=== PATIENT | female | born 1940 | race African-American/Black ===

== ENCOUNTER 2016-10-21 20:31 | Inpatient (IN) | payer MEDICARE, MEDICAID ==
[~2016-10-21] VITALS: Ht 157.5 cm; Wt 54.4 kg
[~2016-10-21 20:31] MED LIST: BENAZEPRIL; TRAMADOL
[2016-10-21 21:32] LABS: BASOPHILS % 0.8 % (0.0-2.0); EOSINOPHILS % 1.2 % (0.0-5.0); HEMATOCRIT. 29.8 % (36.0-48.0); HEMOGLOBIN. 9.5 g/dL (12.0-16.0); LYMPHOCYTES % 12.1 % (20.0-50.0); MEAN CORPUSCULAR HEMOGLOBIN 27.4 pg (28.0-32.0); MEAN CORPUSCULAR VOLUME 86.2 fL (81.0-99.0); MEAN PLATELET VOLUME 8.2 fl (7.4-10.4); MONOCYTES % 5.2 % (2.0-8.0); NEUTROPHILS % 80.7 % (40.0-76.0); PLATELET 264 x1000/uL (130-400); RED BLOOD CELL COUNT 3.46 mill/uL (4.2-5.4)
[2016-10-21 21:36] LABS: PROTHROMBIN TIME 10.4 sec (9.4-11.6)
[2016-10-21 21:52] LABS: CHLORIDE 108 mEq/L (98-107)
[2016-10-21 21:55] LABS: CARBON DIOXIDE 21 mEq/L (21-32)
[2016-10-21 22:03] LABS: TROPONIN I 0.03 ng/mL (0.00-0.04)
[2016-10-21] MEDS ORDERED: ATROPINE SULFATE 1MG/ML VIAL IV ONE (22:45)
[2016-10-21] MEDS ORDERED: CALCIUM GLUCONATE 1,000 MG in DEXTROSE 5% WATER 50 ML IV ONE (22:45)
[2016-10-21] MEDS ORDERED: MORPHINE SULFATE 2 MG/ML CPJ (NOT FOR IM USE) IV PRN (23:00)
[2016-10-21] MEDS ORDERED: LORAZEPAM 2MG/ML CPJ IV PRN (23:00)
[2016-10-21] MEDS ORDERED: ONDANSETRON HCL 4MG/2ML VIAL IV PRN (23:00)
[2016-10-21] MEDS ORDERED: IBUPROFEN 600MG TABLET PO PRN (23:15)
[2016-10-21] MEDS ORDERED: ACETAMINOPHEN 325MG TABLET PO PRN (23:15)
[2016-10-21] MEDS ORDERED: ATROPINE SULFATE 1MG/ML VIAL IV NR (23:45)
[2016-10-21] MEDS ORDERED: ATROPINE SULFATE 1MG/10ML SYR IV ONE (23:45)
[2016-10-22] VITALS (10 sets, daily range): BP systolic 120–208; BP diastolic 31–111
[2016-10-22] MEDS: SODIUM CHLORIDE 0.9% 1,000 ML IV SCH ×2 (05:43→22:33)
[2016-10-22 08:07] LABS: TROPONIN I 0.06 ng/mL (0.00-0.04)
[2016-10-22] MEDS ORDERED: ENOXAPARIN 30MG/0.3ML SYR SUBCUT SCH (09:00)
[2016-10-22] MEDS: AMLODIPINE 5MG TABLET PO SCH ×2 (11:36→21:20)
[2016-10-22 12:06] LABS: CARBON DIOXIDE 21 mEq/L (21-32); CHLORIDE 108 mEq/L (98-107)
[2016-10-22] MEDS ORDERED: ACETAMINOPHEN 325MG TABLET PO PRN (13:00)
[2016-10-22] MEDS ORDERED: ONDANSETRON HCL 4MG/2ML VIAL IV PRN (13:00)
[2016-10-22] MEDS ORDERED: SODIUM POLYSTYRENE SULFONATE 15 G/60 ML BOT PO SCH (13:00)
[2016-10-22] MEDS ORDERED: MAGNESIUM/ALUMINUM HYDROXIDE/SIMETHICONE 30ML UDC PO PRN (13:15)
[2016-10-22] MEDS ORDERED: HYDRALAZINE HCL 25MG TABLET PO SCH (14:00)
[2016-10-22] MEDS: HYDROCODONE/ACETAMINOPHEN 5/325MG TABLET PO PRN ×2 (15:47→22:37)
[2016-10-22 21:28] LABS: TROPONIN I 0.13 ng/mL (0.00-0.04)
[2016-10-22] MEDS: HYDRALAZINE HCL 50MG TABLET PO SCH (22:33)
[2016-10-23] VITALS (13 sets, daily range): BP systolic 113–179; BP diastolic 59–100
[2016-10-23] MEDS: OMEPRAZOLE 20MG CAPSULE EXTENDED RELEASE PO SCH (06:41)
[2016-10-23] MEDS: HYDRALAZINE HCL 50MG TABLET PO SCH (06:41)
[2016-10-23 06:57] LABS: HEMATOCRIT. 31.5 % (36.0-48.0); HEMOGLOBIN. 10.3 g/dL (12.0-16.0); MEAN CORPUSCULAR HEMOGLOBIN 27.3 pg (28.0-32.0); MEAN CORPUSCULAR VOLUME 83.8 fL (81.0-99.0); MEAN PLATELET VOLUME 8.5 fl (7.4-10.4); PLATELET 332 x1000/uL (130-400); RED BLOOD CELL COUNT 3.76 mill/uL (4.2-5.4); RED CELL DISTRIBUTION WIDTH 15.8 % (11.6-14.6)
[2016-10-23] MEDS ORDERED: ALD50 PO (09:57)
[2016-10-23] MEDS ORDERED: BENA20TA3 PO (09:57)
[2016-10-23] MEDS ORDERED: MULT-1146 PO (09:57)
[2016-10-23] MEDS ORDERED: LABE300T PO (09:57)
[2016-10-23] MEDS ORDERED: ZET10 PO (09:57)
[2016-10-23] MEDS ORDERED: ISOS30TA6 PO (09:57)
[2016-10-23] MEDS ORDERED: OCD MT (09:57)
[2016-10-23] MEDS ORDERED: HYDR-519 PO (09:57)
[2016-10-23] MEDS ORDERED: FURO20TA4 PO (09:57)
[2016-10-23] MEDS ORDERED: ASPI-1158 PO (09:57)
[2016-10-23] MEDS ORDERED: LIP40 PO (09:57)
[2016-10-23] MEDS ORDERED: PANT40TA4 PO (09:57)
[2016-10-23] MEDS ORDERED: NITR0.4T49 SL (09:57)
[2016-10-23] MEDS ORDERED: AMIO100T4 PO (09:57)
[2016-10-23] MEDS ORDERED: METO-293 PO (09:57)
[2016-10-23] MEDS ORDERED: FERR325T6 PO (09:59)
[2016-10-23] MEDS: BENAZEPRIL 20MG TABLET PO SCH (10:00)
[2016-10-23] MEDS: AMLODIPINE 5MG TABLET PO SCH ×2 (10:10→20:47)
[2016-10-23] MEDS: HYDROCODONE/ACETAMINOPHEN 5/325MG TABLET PO PRN (10:23)
[2016-10-23] MEDS: HYDRALAZINE HCL 100MG TABLET PO SCH ×2 (13:15→22:07)
[2016-10-23] MEDS: SODIUM CHLORIDE 0.9% 1,000 ML IV SCH (16:26)
[2016-10-23 17:02] LABS: PLATELET ESTIMATE NORMAL
[2016-10-23] MEDS: ACETAMINOPHEN 325MG TABLET PO PRN (20:48)
[2016-10-24] VITALS (12 sets, daily range): BP systolic 84–152; BP diastolic 38–89
[2016-10-24] MEDS: HYDRALAZINE HCL 100MG TABLET PO SCH ×3 (05:31→22:00)
[2016-10-24] MEDS: OMEPRAZOLE 20MG CAPSULE EXTENDED RELEASE PO SCH (07:05)
[2016-10-24] MEDS: HYDROCODONE/ACETAMINOPHEN 5/325MG TABLET PO PRN ×2 (08:25→12:41)
[2016-10-24] MEDS: BENAZEPRIL 20MG TABLET PO SCH (08:25)
[2016-10-24] MEDS: AMLODIPINE 5MG TABLET PO SCH ×2 (08:25→21:54)
[2016-10-24 08:31] LABS: CARBON DIOXIDE 25 mEq/L (21-32); CHLORIDE 112 mEq/L (98-107)
[2016-10-24 08:42] LABS: BASOPHILS % 1.1 % (0.0-2.0); HEMOGLOBIN. 10.1 g/dL (12.0-16.0); LYMPHOCYTES % 8.7 % (20.0-50.0); MEAN CORPUSCULAR HEMOGLOBIN 27.4 pg (28.0-32.0); MEAN CORPUSCULAR VOLUME 84.4 fL (81.0-99.0); MEAN PLATELET VOLUME 8.2 fl (7.4-10.4); MONOCYTES % 6.2 % (2.0-8.0); PLATELET 299 x1000/uL (130-400); RED BLOOD CELL COUNT 3.67 mill/uL (4.2-5.4); RED CELL DISTRIBUTION WIDTH 15.7 % (11.6-14.6)
[2016-10-24] MEDS: SODIUM CHLORIDE 0.9% 1,000 ML IV SCH ×2 (12:37→22:31)
[2016-10-25] VITALS (12 sets, daily range): BP systolic 98–147; BP diastolic 44–97
[2016-10-25] MEDS: HYDRALAZINE HCL 100MG TABLET PO SCH ×3 (05:43→22:55)
[2016-10-25] MEDS: OMEPRAZOLE 20MG CAPSULE EXTENDED RELEASE PO SCH (06:18)
[2016-10-25 07:32] LABS: BASOPHILS % 0.7 % (0.0-2.0); EOSINOPHILS % 3.3 % (0.0-5.0); HEMATOCRIT. 27.2 % (36.0-48.0); HEMOGLOBIN. 8.8 g/dL (12.0-16.0); LYMPHOCYTES % 16.9 % (20.0-50.0); MEAN CORPUSCULAR HEMOGLOBIN 27.2 pg (28.0-32.0); MEAN PLATELET VOLUME 8.6 fl (7.4-10.4); MONOCYTES % 10.2 % (2.0-8.0); NEUTROPHILS % 68.9 % (40.0-76.0); PLATELET 262 x1000/uL (130-400); RED BLOOD CELL COUNT 3.24 mill/uL (4.2-5.4); RED CELL DISTRIBUTION WIDTH 15.8 % (11.6-14.6)
[2016-10-25] MEDS: BENAZEPRIL 20MG TABLET PO SCH (09:04)
[2016-10-25] MEDS: AMLODIPINE 5MG TABLET PO SCH ×2 (09:04→21:42)
[2016-10-25] MEDS: HYDROCODONE/ACETAMINOPHEN 5/325MG TABLET PO PRN (09:06)
[2016-10-25] MEDS: SODIUM CHLORIDE 0.9% 1,000 ML IV SCH (10:54)
[2016-10-25 12:41] LABS: HEMATOCRIT 30.9 % (36.0-48.0)
[2016-10-25] MEDS ORDERED: MORPHINE SULFATE 4 MG/ML CPJ (NOT FOR IM USE) IV PRN (12:45)
[2016-10-25] MEDS: HYDROCODONE/ACETAMINOPHEN 10/325MG TABLET PO PRN (16:52)
[2016-10-26] VITALS (10 sets, daily range): BP systolic 103–156; BP diastolic 49–68
[2016-10-26] MEDS: HYDROCODONE/ACETAMINOPHEN 10/325MG TABLET PO PRN ×3 (00:02→13:53)
[2016-10-26] MEDS: HYDRALAZINE HCL 100MG TABLET PO SCH ×2 (06:08→14:00)
[2016-10-26] MEDS: AMLODIPINE 5MG TABLET PO SCH (06:09)
[2016-10-26] MEDS: OMEPRAZOLE 20MG CAPSULE EXTENDED RELEASE PO SCH (06:09)
[2016-10-26 07:40] LABS: CARBON DIOXIDE 24 mEq/L (21-32); CHLORIDE 113 mEq/L (98-107)
[2016-10-26 07:54] LABS: BASOPHILS % 0.7 % (0.0-2.0); EOSINOPHILS % 3.3 % (0.0-5.0); HEMATOCRIT. 29.3 % (36.0-48.0); HEMOGLOBIN. 9.5 g/dL (12.0-16.0); LYMPHOCYTES % 19.4 % (20.0-50.0); MEAN CORPUSCULAR HEMOGLOBIN 27.1 pg (28.0-32.0); MEAN CORPUSCULAR VOLUME 83.8 fL (81.0-99.0); MEAN PLATELET VOLUME 8.3 fl (7.4-10.4); MONOCYTES % 11.8 % (2.0-8.0); NEUTROPHILS % 64.8 % (40.0-76.0); PLATELET 302 x1000/uL (130-400)
[2016-10-26] MEDS: BENAZEPRIL 20MG TABLET PO SCH (09:00)
[2016-10-26] MEDS: ACETAMINOPHEN 325MG TABLET PO PRN (10:02)
== END 2016-10-26 20:10 | DRG 682 ==
LOC: ER 20:41 → SUPCPDRO 22:59 → 5EST 23:03 → ENRESERV 10-22 01:33 → CANRESERV 10-22 01:33 → ENRESERV 10-22 02:03
PROVIDERS: ADMIT Internal Medicine Nephrology; ATTEND Internal Medicine Nephrology
DX: N17.9 Acute kidney failure, unspecified (principal); E43 Unspecified severe protein-calorie malnutrition; I27.2 Other secondary pulmonary hypertension; C18.9 Malignant neoplasm of colon, unspecified; R00.1 Bradycardia, unspecified; I11.0 Hypertensive heart disease with heart failure; C50.919 Malignant neoplasm of unspecified site of unspecified female breast; I50.9 Heart failure, unspecified; D63.0 Anemia in neoplastic disease; I35.0 Nonrheumatic aortic (valve) stenosis; E87.5 Hyperkalemia; E78.5 Hyperlipidemia, unspecified; R73.9 Hyperglycemia, unspecified; Z68.21 Body mass index [BMI] 21.0-21.9, adult; Z92.21 Personal history of antineoplastic chemotherapy; Z90.710 Acquired absence of both cervix and uterus
CPT/HCPCS: 36415; 71010; 78582; 80048; 80053; 82550; 82962; 83036; 83520; 83735; 83880; 84443; 84484; 85014; 85018; 85025; 85610; 93005; 93306; 93970; 96365; 96375; 96376; 97110; 97112; 97116; 97162; 97530; 99291; A9558; J0461; J0610; J1650; J2060; J2270; J7030; J7060